=== PATIENT | female | born 1950 | race Caucasian/White ===

== ENCOUNTER → 2019-01-06 14:19 | Outpatient (CLI) | payer MEDICARE, OTHER, SELFPAY ==
[2019-01-12 10:54] LABS: HPV Reflexed? NOT INDICATED
== END ==
PROVIDERS: Visit Provider Obstetrics & Gynecology
DX: Z12.4 Encounter for screening for malignant neoplasm of cervix (principal)
CPT/HCPCS: 88175; G0145

== ENCOUNTER → 2021-05-21 13:12 | Outpatient (CLI) | payer MEDICARE, OTHER, SELFPAY ==
[2021-05-24 19:42] LABS: HPV APTIMA, High Risk Negative (Negative)
== END ==
PROVIDERS: Visit Provider Student in an Organized Health Care Education/Training Program
DX: Z12.4 Encounter for screening for malignant neoplasm of cervix (principal)
CPT/HCPCS: 87624; 88175; G0145